=== PATIENT | male | born 1990 | race African-American/Black ===

== ENCOUNTER 2017-01-21 21:19 | Emergency (ER) | payer OTHER ==
[~2017-01-21] VITALS: Ht 177.8 cm; Wt 97.5 kg
[2017-01-21 21:35] VITALS: BP 137/75
[2017-01-21] MEDS ORDERED: FLUORESCEIN OPHTH TEST STRIP. OS ONE (22:00)
[2017-01-21] MEDS ORDERED: TETRACAINE 0.5% OPHTH SOLUTION 4ML BOTTLE. OS ONE (22:00)
--- NOTE | 2017-01-21 22:06 | PHYS DOC ---
Past Medical History Past Medical History: No Pertinent History Past Surgical History: Other Additional Past Surgical Histo: HERNIA REPAIR X 4 Alcohol Use: None Drug Use: None Adult General Chief Complaint Chief Complaint: FOREIGN BODY/EYES HPI HPI Patient is a 26 year old male presents to the emergency department with complaints of left eye pain. Patient states that 4 days ago he was cutting his lawn when a rock K to him in the left eye. He states he had no discomfort until 2 days after the incident. He states then he developed photophobia with watery discharge. He states that today the pain has persisted and hurt more when he was watching TV and he presents for further evaluation. He states he has no loss of vision. He does state that the pain is so intense he seeing red and blue flashes. He states that the flashes only occur when his eyes are closed. The pain in the left eye is of same intensity whether the eye is open or close. Review of Systems Review of Systems Constitutional: Denies fever or chills [] Eyes: See history of present illness. Patient reports the pain to be beneath the left brow and actually not a globe pain. HENT: Denies nasal congestion or sore throat [] Respiratory: Denies cough or shortness of breath [] Cardiovascular: No additional information not addressed in HPI [] GI: Denies abdominal pain, nausea, vomiting, bloody stools or diarrhea [] : Denies dysuria or hematuria [] Musculoskeletal: Denies back pain or joint pain [] Integument: Denies rash or skin lesions [] Neurologic: Denies headache, focal weakness or sensory changes [] Endocrine: Denies polyuria or polydipsia [] Current Medications Current Medications Current Medications Medications (Trade) Dose Ordered Sig/Elisabeth Start Time Stop Time Status Last Admin Dose Admin Fluorescein Sodium (Ful-Laney) 1 strip 1X ONCE 01/21/17 22:00 01/21/17 22:01 DC 01/21/17 21:51 1 STRIP Tetracaine HCl (Tetracaine) 1 drop 1X ONCE 01/21/17 22:00 01/21/17 22:01 DC 01/21/17 21:51 1 DROP Allergies Allergies Allergies Coded Allergies Type Severity Reaction Last Updated Verified No Known Drug Allergies 01/21/17 No Physical Exam Physical Exam Constitutional: Well developed, well nourished, no acute distress, non-toxic appearance. [] HENT: Normocephalic, atraumatic, bilateral external ears normal, oropharynx moist, no oral exudates, nose normal. [] Eyes: PERRLA, EOMI intact without pain, no loss of visual darden, sclera injected, funduscopic exam is benign. Neck: Normal range of motion, no tenderness, supple, no stridor. [] Cardiovascular:Heart rate regular rhythm, no murmur [] Lungs & Thorax: Bilateral breath sounds clear to auscultation [] Abdomen: Bowel sounds normal, soft, no tenderness, no masses, no pulsatile masses. [] Skin: Warm, dry, no erythema, no rash. [] Back: No tenderness, no CVA tenderness. [] Extremities: No tenderness, no cyanosis, no clubbing, ROM intact, no edema. [] Neurologic: Alert and oriented X 3, normal motor function, normal sensory function, no focal deficits noted. [] Psychologic: Affect normal, judgement normal, mood normal. [] Current Patient Data Vital Signs Vital Signs Date Time Temp Pulse Resp B/P (MAP) Pulse Ox O2 Delivery O2 Flow Rate FiO2 01/21/17 21:35 98.3 91 20 99 Room Air 98.3 EKG EKG [] Radiology/Procedures Radiology/Procedures Procedure note: Left eye anesthetized with tetracaine. The upper lid everted no visualized foreign body. The eye was stained with fluorescein, utilized a Guzman lamp, no pooling, no corneal abrasion. Patient does state that the eye feels better without pain since the tetracaine was applied. He also denies visual disturbance or flashes of the eye is closed. He has no flashes of red or blue in the eye is opened, after the tetracaine or prior to the use of tetracaine. [] [facility] [address] [place], [place] [id number] IMAGING REPORT Signed PATIENT: PRAVIN TESFAYE ACCOUNT: [id number] : 1990 LOCATION: ER AGE: 26 SEX: M EXAM STATUS: REG ER ORD. PHYSICIAN: ADRIENNE MOCK APRN REASON: hit in eye with a rock PROCEDURE: CT ORBITS WO CONTRAST EXAM: Orbital CT without contrast. HISTORY: Blunt trauma. TECHNIQUE: Computed tomographic images of the orbits were obtained without contrast. *One or more of the following individualized dose reduction techniques were utilized for this examination: 1. Automated exposure control. 2. Adjustment of the mA and/or kV according to patient size. 3. Use of iterative reconstruction technique. COMPARISON: None. FINDINGS: No acute fracture is seen. There is mild paranasal sinus mucosal thickening with mucous retention cysts within the right maxillary sinus and sphenoid sinus. There is obstruction of the left ostiomeatal unit. There is no significant nasal septal deviation. The globes, lenses, extraocular muscles, optic nerves are unremarkable. There is no infiltration of the retrobulbar fat. The visualized portions of the brain, calvarium and mastoid air cells are unremarkable. The temporomandibular joints are intact. No radiodense foreign body is seen. IMPRESSION: 1. No evidence of acute maxillofacial bone trauma. 2. Mild paranasal sinus disease. Electronically signed by: Chloe Cowan MD (01/21/2017 10:23 PM) [facility] DICTATED and SIGNED BY: CHLOE COWAN MD DATE: 01/21/172222 CC: NO PCP; ADRIENNE MOCK APRN ~ Course & Med Decision Making Course & Med Decision Making Reevaluation, patient is sleeping, awakens easily. He has no complaints of eye pain or visual disturbance, no complaints of color flashes. I've discussed results of his CT with he and his family. He will follow-up with ophthalmology tomorrow, calling in the morning to schedule an appointment. Patient was advised to return to the emergency Department for new symptoms or concerns or worsening of current condition. Pertinent Labs and Imaging studies reviewed. (See chart for details) [] Dragon Disclaimer Dragon Disclaimer This electronic medical record was generated, in whole or in part, using a voice recognition dictation system. Departure Departure Impression: Primary Impression: Pain around left eye Disposition: 01 HOME, SELF-CARE Condition: STABLE Referrals: [facility], Patient Instructions: Eye Contusion Additional Instructions: Call tomorrow morning to schedule follow-up appointment with [facility] eye clinic tomorrow. Return to the emergency department his symptoms or concerns or worsening of current condition. Scripts Tramadol Hcl (TRAMADOL HCL) 50 Mg Tablet 50 MG PO DAILY Y for PAIN, #10 TAB 0 Refills Prov: ADRIENNE MOCK APRN 01/21/17 ADRIENNE MOCK APRN Jan 21, 2017 22:06
--- NOTE | 2017-01-21 22:26 | RAD ---
EXAM: Orbital CT without contrast. HISTORY: Blunt trauma. TECHNIQUE: Computed tomographic images of the orbits were obtained without contrast. *One or more of the following individualized dose reduction techniques were utilized for this examination: 1. Automated exposure control. 2. Adjustment of the mA and/or kV according to patient size. 3. Use of iterative reconstruction technique. COMPARISON: None. FINDINGS: No acute fracture is seen. There is mild paranasal sinus mucosal thickening with mucous retention cysts within the right maxillary sinus and sphenoid sinus. There is obstruction of the left ostiomeatal unit. There is no significant nasal septal deviation. The globes, lenses, extraocular muscles, optic nerves are unremarkable. There is no infiltration of the retrobulbar fat. The visualized portions of the brain, calvarium and mastoid air cells are unremarkable. The temporomandibular joints are intact. No radiodense foreign body is seen. IMPRESSION: 1. No evidence of acute maxillofacial bone trauma. 2. Mild paranasal sinus disease. Electronically signed by: Chloe Lyle MD (01/21/2017 10:23 PM) [facility]
[2017-01-21] MEDS ORDERED: TRAM50TA PO (22:49)
== END 2017-01-21 23:07 | disposition home or self-care (01) ==
LOC: ER 21:19
DX: H57.12 Ocular pain, left eye (principal); W22.8XXA Striking against or struck by other objects, initial encounter; Y93.89 Activity, other specified; Y92.89 Other specified places as the place of occurrence of the external cause; Y99.8 Other external cause status
CPT/HCPCS: 70480; 99284-25